=== PATIENT | female | born 1960 | race Caucasian/White ===

== ENCOUNTER 2021-12-01 14:42 | Emergency (ER) | payer OTHER ==
[~2021-12-01] VITALS: Ht 154.9 cm; Wt 63.6 kg
[2021-12-01 14:54] VITALS: BP 137/75
== END 2021-12-01 17:38 | disposition home or self-care (01) ==
LOC: ER 14:44
DX: S69.92XA Unspecified injury of left wrist, hand and finger(s), initial encounter (principal); M79.645 Pain in left finger(s); X58.XXXA Exposure to other specified factors, initial encounter; Y93.89 Activity, other specified; Y92.89 Other specified places as the place of occurrence of the external cause; Y99.8 Other external cause status
CPT/HCPCS: 29125; 73140; 99283